=== PATIENT | male | born 1975 | race Two or more races ===

== ENCOUNTER 2017-07-09 10:58 | Emergency (ER) | payer OTHER ==
[~2017-07-09] VITALS: Ht 160 cm; Wt 81.6 kg
[2017-07-09 11:56] VITALS: BP 137/77
[2017-07-09 11:57] VITALS: BP 137/77
--- NOTE | 2017-07-09 12:52 | Emergency Room Report ---
History of Present Illness General Chief Complaint: Laceration Source: Patient Present Illness HPI Patient is a 41-year-old male who presented after increased left hand pain after accidentally cutting himself with a kitchen knife. The patient reportedly was cutting bread. 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 He reports having up-to-date tetanus vaccine 2 years ago. Patient states he has prior history of kidney stones but denies other past medical history Allergies: Coded Allergies: No Known Allergies (Unverified , 07/09/17) Patient History Past Medical History: see triage record Reviewed Nursing Documentation: PMH: Agreed; PSxH: Agreed Nursing Documentation-PMH Past Medical History: No Stated History Review of Systems All Other Systems: negative except mentioned in HPI Physical Exam Vital Signs Date Time Temp Pulse Resp B/P (MAP) Pulse Ox O2 Delivery O2 Flow Rate FiO2 07/09/17 11:03 97.9 50 16 114/69 96 Room Air 97.9 General Appearance: well appearing, no apparent distress, alert, GCS 15 Head: normocephalic, atraumatic ENT: hearing grossly normal, normal voice Neck: full range of motion, supple Respiratory: no respiratory distress, speaking full sentences Musculoskeletal: normal inspection, back normal, digits/nails normal, gait/ station normal, no calf tenderness Neurologic: normal inspection, alert, oriented x3, responsive, 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 Differential diagnoses included foreign body , nerve injury, arterial injury among others. Patient has a benign exam and does not appear to require any further imaging or laboratory testing at this time. The patient is advised to keep wound clean and dry not place antibiotic ointment. The patient was placed on modified duty. The patient is advised to follow up with doctor in 2-3 days for wound check. Patient is advised to return if any worsening condition or if any changes in status that are concerning. This report is dictated with [employer] qc manager software which may occasionally lead to discrepancies related to use of this software. Last Vital Signs Date Time Temp Pulse Resp B/P (MAP) Pulse Ox O2 Delivery O2 Flow Rate FiO2 07/09/17 11:57 97.9 49 18 137/77 98 Room Air 97.9 Status: improved Disposition: HOME, SELF-CARE Condition: Stable Patient Instructions: Tissue Adhesive Wound Care Danie Julio MD Jul 09, 2017 12:52
== END 2017-07-09 12:00 | disposition home or self-care (01) ==
LOC: EMR 11:16
DX: S61.412A Laceration without foreign body of left hand, initial encounter (principal); W26.0XXA Contact with knife, initial encounter; Y93.G1 Activity, food preparation and clean up; Y92.511 Restaurant or cafe as the place of occurrence of the external cause; Y99.0 Civilian activity done for income or pay
CPT/HCPCS: 99283